=== PATIENT | female | born 1980 | race Caucasian/White ===

== ENCOUNTER 2017-09-13 10:47 | Emergency (ER) | payer BC ==
[~2017-09-13] VITALS: Ht 157.5 cm; Wt 108.0 kg
[2017-09-13 10:52] VITALS: BP 164/85; PULSE 80; RESP 16; TEMP 97.7; O2SAT 97
[2017-09-13] MEDS ORDERED: SODIUM CHLOR 0.9% 1000 ML INJ 1,000 ML IV SCH (11:07)
--- NOTE | 2017-09-13 11:13 | PD ---
HPI Chief Complaint: Flank/Kidney Pain Time Seen by Provider: 10:59 Travel History International Travel<30 days: No Contact w/Intl Traveler<30days: No Traveled to known affect area: No History of Present Illness HPI Patient is a 36-year-old female with no past medical history, presents the emergency room complaints of left-sided flank pain. Patient reports that she woke up this morning with intermittent left-sided flank pain which radiates her groin. Patient reports that nothing makes pain better or worse, when she does have this onset of pain, and last for a few minutes and then resolved on its own. Patient reports associated nausea and vomiting with her symptoms, no fever or chills. Patient has noticed that her urine is darker, questionable for hematuria. Patient denies history of kidney stones though she thinks that she may have had them in the past which were undiagnosed. Patient denies any trauma to her back. Patient denies dysuria, denies urinary urgency or frequency. PFSH Past Medical History Medical History: Denies Significant Hx ?: Not LMP: has IUD no menses Past Surgical History Surgical History: No Previous Surgery Social History Alcohol Use: No Tobacco Use: No Substance Use: No Allergies-Medications (Allergen,Severity, Reaction): Coded Allergies: No Known Allergies (Unverified , 09/13/17) Reported Meds & Prescriptions Reported Meds & Active Scripts Active Reported Cetirizine (Cetirizine HCl) 10 Mg Tab 10 Mg PO DAILY Zorvolex (Diclofenac) 35 Mg Cap 75 Mg PO BID Flonase Nasal [place] (Fluticasone Nasal [place]) 50 Mcg/Act [place] 50 Mcg EACH NARE BID Review of Systems General / Constitutional: No: Fever Eyes: No: Visual changes HENT: No: Headaches Cardiovascular: No: Chest Pain or Discomfort Respiratory: No: Shortness of Breath Gastrointestinal: Positive: Nausea, Vomiting, No: Abdominal Pain Genitourinary: Positive: Hematuria, Flank Pain, No: Urgency, Frequency, Dysuria Musculoskeletal: No: Pain Skin: No Rash Neurologic: No: Weakness Psychiatric: No: Depression Endocrine: No: Polydipsia Hematologic/Lymphatic: No: Easy Bruising Physical Exam Narrative GENERAL: mild distress SKIN: Focused skin assessment warm/dry. HEAD: Atraumatic. Normocephalic. EYES: Pupils equal and round. No scleral icterus. No injection or drainage. ENT: No nasal bleeding or discharge. Mucous membranes pink and moist. NECK: Trachea midline. No JVD. CARDIOVASCULAR: Regular rate and rhythm. No murmur appreciated. RESPIRATORY: No accessory muscle use. Clear to auscultation. Breath sounds equal bilaterally. GASTROINTESTINAL: Abdomen soft, non-tender, nondistended. Hepatic and splenic margins not palpable. Patient with left sided flank pain MUSCULOSKELETAL: No obvious deformities. No clubbing. No cyanosis. No edema. NEUROLOGICAL: Awake and alert. No obvious cranial nerve deficits. Motor grossly within normal limits. Normal speech. PSYCHIATRIC: Appropriate mood and affect; insight and judgment normal. Data Data Last Documented VS Vital Signs Date Time Temp Pulse Resp B/P (MAP) Pulse Ox O2 Delivery O2 Flow Rate FiO2 09/13/17 11:43 97 Room Air 09/13/17 11:42 69 18 09/13/17 10:52 97.7 Orders Orders Urinalysis - C+S If Indicated (09/13/17 10:49) Ed Urine Pregnancytest Poc (09/13/17 10:49) Complete Blood Count With Diff (09/13/17 11:07) Comprehensive Metabolic Panel (09/13/17 11:07) Lipase (09/13/17 11:07) Prothrombin Time / Inr (Pt) (09/13/17 11:07) Act Partial Throm Time (Ptt) (09/13/17 11:07) Ct Abd/Pel W/O Iv Contrast (09/13/17 11:07) Iv Access Insert/Monitor (09/13/17 11:07) Ecg Monitoring (09/13/17 11:07) Oximetry (09/13/17 11:07) Sodium Chlor 0.9% 1000 Ml Inj (Ns 1000 M (09/13/17 11:07) Sodium Chloride 0.9% Flush (Ns Flush) (09/13/17 11:15) Ketorolac Inj (Toradol Inj) (09/13/17 11:15) Metoclopramide Inj (Reglan Inj) (09/13/17 11:15) Labs Laboratory Tests Test 09/13/17 11:03 09/13/17 11:25 Urine Color YELLOW Urine Turbidity CLOUDY Urine pH 5.5 Urine Specific [place] GREATER/EQUAL 1.030 Urine Protein 30 mg/dL Urine Glucose (UA) NEG mg/dL Urine Ketones NEG mg/dL Urine Occult Blood LARGE Urine Nitrite NEG Urine Bilirubin NEG Urine Urobilinogen mg/dL Urine Leukocyte Esterase NEG Urine RBC 100-200 /hpf Urine WBC 0-2 /hpf Urine Squamous Epithelial Cells 0-5 /hpf Microscopic Urinalysis Comment CULT NOT INDICATED White Blood Count 7.6 TH/MM3 Red Blood Count 4.63 MIL/MM3 Hemoglobin 14.0 GM/DL Hematocrit 41.2 % Mean Corpuscular Volume 89.0 FL Mean Corpuscular Hemoglobin 30.2 PG Mean Corpuscular Hemoglobin Concent 34.0 % Red Cell Distribution Width 12.5 % Platelet Count 290 TH/MM3 Mean Platelet Volume 8.4 FL Neutrophils (%) (Auto) 77.2 % Lymphocytes (%) (Auto) 15.3 % Monocytes (%) (Auto) 3.8 % Eosinophils (%) (Auto) 2.4 % Basophils (%) (Auto) 1.3 % Neutrophils # (Auto) 5.8 TH/MM3 Lymphocytes # (Auto) 1.2 TH/MM3 Monocytes # (Auto) 0.3 TH/MM3 Eosinophils # (Auto) 0.2 TH/MM3 Basophils # (Auto) 0.1 TH/MM3 CBC Comment DIFF FINAL Differential Comment Prothrombin Time 11.3 SEC Prothromb Time International Ratio 1.1 RATIO Activated Partial Thromboplast Time 28.5 SEC Blood Urea Nitrogen 12 MG/DL Creatinine 0.63 MG/DL Random Glucose 103 MG/DL Total Protein 7.8 GM/DL Albumin 4.0 GM/DL Calcium Level 8.7 MG/DL Alkaline Phosphatase 102 U/L Aspartate Amino Transf (AST/SGOT) 21 U/L Alanine Aminotransferase (ALT/SGPT) 29 U/L Total Bilirubin 0.7 MG/DL Sodium Level 140 MEQ/L Potassium Level 4.9 MEQ/L Chloride Level 109 MEQ/L Carbon Dioxide Level 24.0 MEQ/L Anion Gap 7 MEQ/L Estimat Glomerular Filtration Rate 108 ML/MIN Lipase 99 U/L [facility] Medical Decision Making Medical Screen Exam Complete: Yes Emergency Medical Condition: Yes Medical Record Reviewed: Yes Interpretation(s) Vital Signs Date Time Temp Pulse Resp B/P (MAP) Pulse Ox O2 Delivery O2 Flow Rate FiO2 09/13/17 10:52 97.7 80 16 164/85 (111 97 Differential Diagnosis Kidney stone, pyelonephritis, muscle skeletal pain Narrative Course During the course of the patients emergency department visit, the patients history, examination, and differential diagnosis were reviewed with the patient. The patient was placed on a cardiac care unit nurse with oximetry and frequent blood pressure monitoring. The patient had an IV access obtained and blood work sent for analysis. The patient was initially provided IVF, IV reglan and IV toradol The patients laboratory studies were reviewed and remarkable for: Laboratory Tests Test 09/13/17 11:03 09/13/17 11:25 Urine Color YELLOW (YELLW/STRAW) Urine Turbidity CLOUDY (CLEAR) Urine pH 5.5 (5.0-8.5) Urine Specific [place] GREATER/EQUAL 1.030 Urine Protein 30 mg/dL (NEG-TRACE) Urine Glucose (UA) NEG mg/dL (NEG) Urine Ketones NEG mg/dL (NEG) Urine Occult Blood LARGE (NEG) Urine Nitrite NEG (NEG) Urine Bilirubin NEG (NEG) Urine Urobilinogen mg/dL (LESS THAN 2) Urine Leukocyte Esterase NEG (NEG) Urine RBC 100-200 /hpf (0-3) Urine WBC 0-2 /hpf (0-5) Urine Squamous Epithelial Cells 0-5 /hpf (0-5) Microscopic Urinalysis Comment CULT NOT INDICATED White Blood Count 7.6 TH/MM3 (4.0-11.0) Red Blood Count 4.63 MIL/MM3 (4.00-5.30) Hemoglobin 14.0 GM/DL (11.6-15.3) Hematocrit 41.2 % (35.0-46.0) Mean Corpuscular Volume 89.0 FL (80.0-100.0) Mean Corpuscular Hemoglobin 30.2 PG (27.0-34.0) Mean Corpuscular Hemoglobin Concent 34.0 % (32.0-36.0) Red Cell Distribution Width 12.5 % (11.6-17.2) Platelet Count 290 TH/MM3 (150-450) Mean Platelet Volume 8.4 FL (7.0-11.0) Neutrophils (%) (Auto) 77.2 % (16.0-70.0) Lymphocytes (%) (Auto) 15.3 % (9.0-44.0) Monocytes (%) (Auto) 3.8 % (0.0-8.0) Eosinophils (%) (Auto) 2.4 % (0.0-4.0) Basophils (%) (Auto) 1.3 % (0.0-2.0) Neutrophils # (Auto) 5.8 TH/MM3 (1.8-7.7) Lymphocytes # (Auto) 1.2 TH/MM3 (1.0-4.8) Monocytes # (Auto) 0.3 TH/MM3 (0-0.9) Eosinophils # (Auto) 0.2 TH/MM3 (0-0.4) Basophils # (Auto) 0.1 TH/MM3 (0-0.2) CBC Comment DIFF FINAL Differential Comment Prothrombin Time 11.3 SEC (9.8-11.6) Prothromb Time International Ratio 1.1 RATIO Activated Partial Thromboplast Time 28.5 SEC (24.3-30.1) Blood Urea Nitrogen 12 MG/DL (7-18) Creatinine 0.63 MG/DL (0.50-1.00) Random Glucose 103 MG/DL (74-106) Total Protein 7.8 GM/DL (6.4-8.2) Albumin 4.0 GM/DL (3.4-5.0) Calcium Level 8.7 MG/DL (8.5-10.1) Alkaline Phosphatase 102 U/L (45-117) Aspartate Amino Transf (AST/SGOT) 21 U/L (15-37) Alanine Aminotransferase (ALT/SGPT) 29 U/L (10-53) Total Bilirubin 0.7 MG/DL (0.2-1.0) Sodium Level 140 MEQ/L (136-145) Potassium Level 4.9 MEQ/L (3.5-5.1) Chloride Level 109 MEQ/L (98-107) Carbon Dioxide Level 24.0 MEQ/L (21.0-32.0) Anion Gap 7 MEQ/L (5-15) Estimat Glomerular Filtration Rate 108 ML/MIN (>89) Lipase 99 U/L (73-393) Radiology studies were reviewed and remarkable for Last Impressions Abdomen/Pelvis CT 09/13/17 1107 Signed Impressions: CONCLUSION: 1. There is a 5 mm stone in the proximal left ureter at the left UPJ causing s ome hydronephrosis of the left collecting system. 2. No evidence of any right-sided calcified kidney stones or hydronephrosis. Labs and all studies were reviewed, patient's BUN 12, creatinine 0.63, UA is positive for large blood, 100-200 red blood cells, 0 to white blood cells, negative nitrites, negative leuk esterase CT the abdomen and pelvis shows a 5 mm stone in the proximal left ureter at the left UPJ causing some hydronephrosis of the left collecting system, Patient reports that she is feeling much better after the IV Toradol was administered, patient reports relief of pain at this time. I did review all labs and studies as well as all incidental findings with patient, she was given a copy of her blood work as well as her radiology studies as she will bring this back to her general practitioner when she goes home from vacation tomorrow. Signs and symptoms of when to return to the emergency room was reviewed with patient in detail. Patient understands not to drive or operate heavy machinery while taking narcotic pain medications. Diagnosis Primary Impression: Kidney stone on left side Additional Impressions: Hydronephrosis Qualified Codes: N13.2 - Hydronephrosis with renal and ureteral calculous obstruction Hematuria Qualified Codes: R31.9 - Hematuria, unspecified Patient Instructions: General Instructions Additional Instructions: Please provide patient with a copy of their lab work and studies at discharge* * Please follow up with your primary care doctor in 2-3 days Return to the ER if symptoms worsen or progress Return to the ER as needed Please strain your urine Do not drive or operate heavy machinery while taking narcotic pain medications Please follow-up with a urologist, bring the kidney stone to your appointment Med/Other Pt SpecificInfo: Prescription(s) given Scripts Ibuprofen (Ibuprofen) 600 Mg Tab 600 MG PO Q6H Y for Pain/Inflammation, #40 TAB 0 Refills Prov: Claudia Multani DO 09/13/17 Oxycodone-Acetaminophen (Percocet) 5-325 mg Tab 1 TAB PO Q6H Y for PAIN, #12 TAB 0 Refills Prov: Claudia Multani DO 09/13/17 Tamsulosin (Flomax) 0.4 Mg Cap 0.4 MG PO HS for Manage Prostate Problems, #10 CAP 0 Refills Prov: Claudia Multani DO 09/13/17 Disposition: 01 DISCHARGE HOME Condition: Stable Claudia Multani DO Sep 13, 2017 11:13
[2017-09-13] MEDS ORDERED: SODIUM CHLORIDE 0.9% FLUSH 10 ML FLUSH IV FLUSH PRN (11:15)
[2017-09-13] MEDS ORDERED: KETOROLAC TROMETHAMINE 30 MG/ML (IVP) VIAL IV PUSH ONE (11:15)
[2017-09-13] MEDS ORDERED: METOCLOPRAMIDE HCL 10 MG/2 ML VIAL IV PUSH ONE (11:15)
[2017-09-13 11:30] LABS: AUTOMATED NEUTROPHIL # 5.8 TH/MM3 (1.8-7.7); BASOPHIL # 0.1 TH/MM3 (0-0.2); BASOPHIL % 1.3 % (0.0-2.0); EOSINOPHIL # 0.2 TH/MM3 (0-0.4); EOSINOPHIL % 2.4 % (0.0-4.0); HEMATOCRIT 41.2 % (35.0-46.0); LYMPH % 15.3 % (9.0-44.0); LYMPHOCYTE # 1.2 TH/MM3 (1.0-4.8); MEAN CORPUSCULAR HEMOGLOBIN 30.2 PG (27.0-34.0); MEAN PLATELET VOLUME 8.4 FL (7.0-11.0); MONO % 3.8 % (0.0-8.0); MONOCYTE # 0.3 TH/MM3 (0-0.9); NEUT % 77.2 % (16.0-70.0); PLATELET COUNT 290 TH/MM3 (150-450); RED BLOOD COUNT 4.63 MIL/MM3 (4.00-5.30); RED CELL DISTRIBUTION WIDTH 12.5 % (11.6-17.2); WHITE BLOOD COUNT 7.6 TH/MM3 (4.0-11.0)
[2017-09-13 11:33] LABS: BILIRUBIN, URINE NEG (NEG); BLOOD, URINE LARGE (NEG); GLUCOSE,URINE NEG (NEG); KETONE, URINE NEG (NEG); NITRITE,URINE NEG (NEG); PH, URINE 5.5 (5.0-8.5); URINE COLOR YELLOW (YELLW/STRAW); URINE LEUKOCYTE ESTERASE NEG (NEG)
[2017-09-13 11:37] LABS: RBC, URINE 100-200 /hpf (0-3); SQUAMOUS EPITHELIAL CELL URINE 0-5 /hpf (0-5); WBC, URINE 0-2 /hpf (0-5)
[2017-09-13 11:38] LABS: CHLORIDE 109 MEQ/L (98-107); SODIUM (NA) 140 MEQ/L (136-145)
[2017-09-13 11:41] LABS: GLUCOSE,RANDOM 103 MG/DL (74-106)
[2017-09-13 11:42] VITALS: BP 131/62; PULSE 69; RESP 18; O2SAT 97
[2017-09-13 11:42] LABS: CALCIUM 8.7 MG/DL (8.5-10.1)
[2017-09-13 11:43] VITALS: O2SAT 97
[2017-09-13 11:43] LABS: BLOOD UREA NITROGEN 12 MG/DL (7-18); INTERNATIONAL NORMALIZED RATIO 1.1 RATIO; PROTHROMBIN TIME - PATIENT 11.3 SEC (9.8-11.6)
[2017-09-13 11:45] LABS: ALT (GPT) 29 U/L (10-53); AST (GOT) 21 U/L (15-37)
[2017-09-13 11:46] LABS: CREATININE 0.63 MG/DL (0.50-1.00); GLOMERULAR FILTRATION RATE 108 ML/MIN (>89)
[2017-09-13] MEDS ORDERED: FLUT1SPR5 EACH NARE (11:46)
[2017-09-13] MEDS ORDERED: DICL1CAP4 PO (11:46)
[2017-09-13 11:47] LABS: TOTAL BILIRUBIN ADULT 0.7 MG/DL (0.2-1.0); TOTAL PROTEIN 7.8 GM/DL (6.4-8.2)
[2017-09-13 11:48] LABS: ALKALINE PHOSPHATASE 102 U/L (45-117)
[2017-09-13] MEDS ORDERED: CETI10 PO (12:17)
--- NOTE | 2017-09-13 12:21 | RADRPT ---
EXAM DATE: 09/13/2017 12:04 PM EDT AGE/SEX: 36 years / Female INDICATIONS: Left flank pain since last night. CLINICAL DATA: This is the patient's initial encounter. Patient reports that signs and symptoms have been present for 2 days and indicates a pain score of 6/10. MEDICAL/SURGICAL HISTORY: None. None. RADIATION DOSE: 23.09 CTDI (mGy) COMPARISON: No prior exams available for comparison. TECHNIQUE: Multiple contiguous axial images were obtained through the abdomen. Images were obtained using multiple row detector helical technique. Using dose reduction techniques, radiation dose was ke pt as low as reasonably achievable to obtain optimal diagnostic quality images. Lack of IV contrast l imits the diagnosis for certain organ pathology. FINDINGS: Lower Lungs: The visualized lower lungs are clear. Liver: The liver has a homogeneous density without space-occupying lesion. There is no dilation of th e biliary tree. Spleen: Homogeneous density without enlargement. Pancreas: Unremarkable without mass or calcification. Kidneys: There is mild hydronephrosis of the left kidney. There is a 5 mm stone in the proximal left ureter at the left UPJ. No calcified right renal stones are seen. There is a tiny 1-2 mm stone lower pole left kidney not causing obstruction. There is no right-sided hydronephrosis. The distal ureters are nondilated. Adrenal Glands: Unremarkable. Aorta: The aorta and proximal iliac vessels are grossly unremarkable without aneurysmal dilation. Bowel/Mesentery: The bowel loops are grossly unremarkable. The cecum and sigmoid colon have a normal configuration. No inflammatory changes. There is stool throughout the colon. The appendix is unremar kable. Abdominal Wall: Intact. Retroperitoneum: No evidence of adenopathy in the retrocrural, para-aortic, or deep pelvic regions. Bladder: Contours are smooth. No calcified stones. Reproductive Organs: There is an IUD in the uterus. Inguinal: The inguinal region is unremarkable without evidence of adenopathy. Bony Structures: Unremarkable. CONCLUSION: 1. There is a 5 mm stone in the proximal left ureter at the left UPJ causing some hydronephrosis of the left collecting system. 2. No evidence of any right-sided calcified kidney stones or hydronephrosis. Electronically signed by: Fredrick Landis MD 09/13/2017 12:19 PM EDT
[2017-09-13] MEDS ORDERED: IBUP-232 PO (12:41)
[2017-09-13] MEDS ORDERED: TAMS5CAP PO (12:41)
[2017-09-13] MEDS ORDERED: PERC5TAB12 PO (12:41)
[2017-09-13 13:09] VITALS: BP 141/62
== END 2017-09-13 13:11 | disposition home or self-care (01) ==
LOC: PHED 10:47
DX: N13.2 Hydronephrosis with renal and ureteral calculous obstruction (principal); R31.9 Hematuria, unspecified; R11.2 Nausea with vomiting, unspecified
CPT/HCPCS: 74176; 80053; 81001; 83690; 84703; 85025; 85610; 85730; 96361; 96374; 96375; 99284; J1885; J2765; J7030